=== PATIENT | female | born 1960 | race Caucasian/White ===

== ENCOUNTER → 2020-08-18 10:17 | Outpatient (CLI) | payer BC, SELFPAY ==
[2020-08-18 11:21] LABS: COVID19 -Nasal RAPID Negative (Negative)
== END ==
PROVIDERS: Visit Provider Nurse Practitioner Family
DX: Z01.812 Encounter for preprocedural laboratory examination (principal); Z20.822 Contact with and (suspected) exposure to COVID-19
CPT/HCPCS: 87635

== ENCOUNTER 2020-08-20 13:25 | Day surgery (SDC) | payer BC, SELFPAY ==
--- NOTE | 2020-08-20 12:34 | PM.HP.1 ---
History of Present Illness History of Present Illness Date Patient Seen: 08/20/20 Chief complaint: SCREENING COLONOSCOPY Narrative: 59 Years Old Female seen today for consideration of a screening colonoscopy. Last colonoscopy 2009, 2 polyps in the cecum and rectum, hyperplastic. She was advised to have a 3-year follow-up secondary to a family history positive for colon cancer in a parent who rapidly of the disease at age 70. There have been no lower GI symptoms suggesting disease such as change in bowel habits, bleeding, abdominal pain or anemia. Overall health issues have been stable, including no major cardiac events for at least 6 weeks. Past Medical History: INSOMNIA DEPRESSION W/ ANXIETY STRESS REACTION, SITUATIONAL LEFT BUNDLE BRANCH BLOCK CARDIOMYOPATHY CONGESTIVE HEART FAILURE Past Surgical History: Hysterectomy (2004) Hand surgery Colonoscopy, 2009, hyperplastic polyp x 2 Family History: Father: Prostate Cancer, colon cancer Social History: Marital Status: - Jose (1950) Occupation: Household Members: Education: College degree 1 glass of wine few times per week. Patient History Surgical History (Updated 10/16/17 @ 05:53 by Conversion Provider) History of cardiac radiofrequency ablation (RFA) Meds Home Medications and Allergies Home Medications Medication Instructions Recorded Confirmed Type RAMIPRIL (ALTACE) 5 mg PO DAILY #0 03/04/12 08/20/20 History metoprolol succinate [Toprol XL] 25 mg PO QDAY #0 03/04/12 08/20/20 History Allergies Allergy/AdvReac Type Severity Reaction Status Date / Time No Known Drug Allergies Allergy Verified 08/20/20 13:35 Review of Systems Review of Systems ROS: Yes All systems reviewed with the patient and are negative except as otherwise documented Exam Narrative Exam Narrative: GENERAL: Alert and oriented, appearing stated age and in no acute distress. HEENT: Head normocephalic/atraumatic. Pupils equal, round, and reactive to light and accomodation. Extraocular muscles intact. Tympanic membranes clear. Nasal mucosa moist, septum midline. Oral mucosa moist, no lesions. Neck soft and supple, no lymphadenopathy. LUNGS: Clear to ausculation bilaterally, no wheezes, rhonchi or rales. CV: Normal S1 and S2 with regular rate and rhythm, no audible murmurs, rubs or gallops. ABDOMEN: Soft, non-tender, non-distended, no organomegaly. Positive bowel sounds. EXTREMITIES: No clubbing, cyanosis, or edema. NEURO: Cranial nerves II through XII grossly intact, no focal deficits. PSYCH: Alert and oriented x 3. SKIN: No concerning lesions. Assessment & Plan Assessment & Plan narrative: 1. Family history of colon cancer 2. History of hyperplastic colon polyps 3. Screening for colon cancer Plan for colonoscopy. The nature and character of the procedure as well as anticipated results were discussed. The possibility of not completing the procedure was also discussed. Possible complications including aspiration pneumonia, bleeding, perforation and reaction to medications either for sedation or preparation and missed lesions were discussed. Questions were answered and proceeding to the colonoscopy was elected. Informed consent signed. I sincerely appreciate the referral allowing me to participate in this patient's care. Please contact me with any questions or concerns.
--- NOTE | 2020-08-20 12:36 | PM.OP.ENDO ---
Operative Date/Time/Diagnoses Date of procedure: 08/20/20 Procedure Notes SCOAP/Timeout: 2:28 p.m. Procedure in detail: ENDOSCOPIST: Allyson Ochoa MD Sedation RN: Vida Mike RN Sedation start time: 2:29 p.m. Sedation end time: 2:55 p.m. PROCEDURE: Colonoscopy INDICATIONS: 1. Family history of colon cancer 2. History of hyperplastic polyps 3. Screening for colon cancer MEDICATION: Levsin 0.125 mg sublingual, 9 mg Versed and 200 mcg of fentanyl ASA CLASS: 2 CECAL WITHDRAWAL TIME: 6 minutes COMPLICATIONS: None. EXTENT OF PROCEDURE: Cecum. QUALITY OF PREP: Good with portions of liquid stool. PROCEDURE: Prior to insertion of the colonoscope, a digital rectal examination was accomplished with circumferential palpation of the distal rectal mucosa without significant findings being noted. The high-definition colonoscope was passed into the rectum in the usual fashion and advanced over to the cecum without difficulty. The ileocecal valve, appendiceal stoma, and medial wall all could be inspected and no abnormalities were seen. ASCENDING COLON: As the colonoscope was withdrawn, care was taken to expose and inspect the haustral folds and no abnormalities were seen. HEPATIC FLEXURE: Normal, no polyps, diverticula or other abnormalities. TRANSVERSE COLON: Normal, no polyps, diverticula or other abnormalities. DESCENDING COLON: Normal, no polyps, diverticula or other abnormalities. SIGMOID COLON: Normal, no polyps, diverticula or other abnormalities. RECTUM: Normal. J maneuver was produced. There was no significant perianal disease. The J maneuver was broken. The remainder of the rectum was inspected and there was no external hemorrhoid disease. The scope was withdrawn. IMPRESSION: 1. Normal colonoscopy 2. Fast metabolizer of anesthesia PLAN: 1. Repeat colonoscopy in 5 years secondary to family history. 2. Will plan for propofol sedation at next colonoscopy secondary to difficulty making patient comfortable with Versed/fentanyl. The possibility of a missed lesion including a malignancy has been discussed with the patient previously. Potential alarm symptoms have been discussed and should be reported immediately.
[2020-08-20] MEDS: LACTATED RINGERS 1,000 ML 200 ML IV (13:43)
[2020-08-20 13:44] VITALS: BP 135/74; PULSE 64; RESP 16; TEMP 36.3; O2SAT 99; BMI 29.8
[2020-08-20] MEDS: HYOSCYAMINE 0.125 MG TABLET PO (13:46)
[2020-08-20] MEDS: fentaNYL 250 MCG/5 ML INJ IV (14:46)
[2020-08-20] MEDS: MIDAZOLAM 5 MG/5 ML VIAL IV (14:46)
[2020-08-20 15:01] VITALS: BP 123/74; PULSE 65; RESP 14; O2SAT 93
[2020-08-20 15:09] VITALS: BP 109/47; PULSE 70; RESP 12; O2SAT 92
[2020-08-20 15:11] VITALS: BP 114/51; PULSE 66; RESP 12; O2SAT 94
[2020-08-20 15:16] VITALS: BP 102/47; PULSE 59; RESP 10; TEMP 36.1; O2SAT 96
== END 2020-08-20 15:40 | disposition home or self-care (01) ==
PROVIDERS: Referring Provider Student in an Organized Health Care Education/Training Program; Visit Provider Student in an Organized Health Care Education/Training Program
PROC: 0DJD8ZZ Inspection of Lower Intestinal Tract, Via Natural or Artificial Opening Endoscopic (ICD-10-PCS; CPT 45378; principal; 2020-08-20 14:30)
DX: Z12.11 Encounter for screening for malignant neoplasm of colon (principal); Z86.010 Personal history of colon polyps; Z80.0 Family history of malignant neoplasm of digestive organs
CPT/HCPCS: 45378; J2250; J3010

== ENCOUNTER → 2021-06-03 08:08 | Outpatient (CLI) | payer BC, SELFPAY ==
--- NOTE | 2021-06-03 08:11 | DI.ECHO.S_ITS ---
[facility]---------+ [facility] +---------+ : : [address] : [address] [address] : : : : [id number] : : : : Phone: [phone]+ Echocardiogram Report + + :Name: ISA DAVIDSON Study Date: 06/03/2021 Height: 66 in : :[facility] ReadingLocation: Weight: 180 lb : : Gender: Female BSA: 1.9 m2 : :: 1960 Age: 60 yrs BP: 134/77 mmHg: :Reason For Study: Cardiomyopathy : : Performed By: Owen Plata : :Referring: LUIS DANIEL BRIONES : + + Interpretation Summary The left ventricle is normal in size.Left ventricular ejection fraction is estimated to be 40 +/- 5%. There is a hypokinesis of septum as well as inferior wall with significant conduction abnormalities of the septum. No significant change from the previous study. The right ventricle is normal in size and function. No significant valvular pathology. The IVC is of normal diameter and collapses greater than 50% with a sniff. This suggests a low right atrial pressure of 3 mm Hg. Procedure: A two-dimensional transthoracic echocardiogram with color flow and Doppler was performed. The study quality was technically adequate. The subcostal views were difficult to obtain and are suboptimal in quality. Comparison is made with the echocardiogram of 02/27/2011. The patient had a bundle branch block rhythm during the exam. The patient was in normal sinus rhythm during the exam. Left Ventricle: The left ventricle is normal in size. There is mild concentric left ventricular hypertrophy. There is no thrombus. Left ventricular ejection fraction is estimated to be 40 +/- 5%. There is a hypokinesis of septum as well as inferior wall with significant conduction abnormalities of the septum. No significant change from the previous study. I reviewed February 27, 2011 echo as well. Diastolic parameters suggest a relaxation abnormality of the left ventricle, consistent with probable normal filling pressures. Right Ventricle: The right ventricle is normal in size and function. Atria: Borderline left atrial enlargement. Right atrial size is normal. There is no Doppler evidence for an interatrial shunt. Mitral Valve: There is mild mitral annular calcification. There is trace mitral regurgitation. Aortic Valve: The aortic valve is trileaflet. The aortic valve opens well. There is trace aortic regurgitation. Tricuspid Valve: The tricuspid valve is normal. Pulmonary artery pressures cannot be estimated because of the lack of a measurable TR jet velocity but the IVC suggests a CVP of around 3 mmHg. There is trace tricuspid regurgitation. Pulmonic Valve: The pulmonic valve leaflets are thin and pliable; valve motion is normal. There is trace pulmonic regurgitation. Great Vessels: The aortic root is normal size. The ascending aorta is normal in size. The aortic arch is normal in size. The IVC is of normal diameter and collapses greater than 50% with a sniff. This suggests a low right atrial pressure of 3 mm Hg. Pericardium/ Pleura There is no pericardial effusion. There is an anterior echo-free space consistent with a fat pad. There is no pleural effusion. MMode/2D Measurements & Calculations LVIDd: 5.0 cm LVOT diam: 2.1 cm LVIDs: 3.7 cm asc Aorta Diam: 3.4 cm FS: 26.3 % Ao Arch Diam (Prox Trans): 3.1 cm IVSd: 1.2 cm LVPWd: 1.4 cm LV talley. diameter/BSA (cm/m^2): 2.6 LV sys. diameter/BSA (cm/m^2): 1.9 LA A2 area: 20.0 cm2 RA long axis: 4.8 cm LA A4 area: 19.5 cm2 RA area: 15.1 cm2 LA length (vol): 5.2 cm RA vol: 40.1 ml LA vol: 63.3 ml RA : 21.0 ml/m2 LA vol index: 33.1 ml/m2 TAPSE: 2.1 cm Doppler Measurements & Calculations Ao V2 max: 122.4 cm/sec LVOT Max Ephraim: 89.1 cm/sec Ao V2 mean: 89.8 cm/sec LV V1 max P.2 mmHg Ao max P.0 mmHg LV V1 VTI: 18.8 cm Ao mean P.5 mmHg LY(I,D): 2.6 cm2 Ao V2 VTI: 24.9 cm LY(V,D): 2.5 cm2 sev ratio: 0.76 LY indexed to BSA (cm^2/m^2): 1.4 MV E max ephraim: 46.3 cm/sec PA V2 max: 109.4 cm/sec MV A max ephraim: 72.8 cm/sec PA V2 mean: 65.0 cm/sec MV E/A: 0.64 PA mean P.0 mmHg Med Peak E' Ephraim: 4.0 cm/sec PA pr(Accel): 27.6 mmHg E/E' med: 11.6 Lat Peak E' Ephraim: 7.0 cm/sec E/E' lat: 6.6 E/e' average: 9.1 MV dec time: 0.21 sec SV(LVOT): 64.7 ml Reading Physician:11:07 AM
== END ==
PROVIDERS: Referring Provider Internal Medicine Cardiovascular Disease; Visit Provider Internal Medicine Cardiovascular Disease
DX: I42.8 Other cardiomyopathies (principal); I44.7 Left bundle-branch block, unspecified
CPT/HCPCS: 93306

== ENCOUNTER 2021-09-20 12:29 | Observation (INO) | payer BC, SELFPAY ==
[2021-09-20] VITALS (18 sets, daily range): BP systolic 117–163; BP diastolic 58–77; PULSE 56–67; RESP 15–21; TEMP 36.2–36.6; O2SAT 94–100; BMI 29.1; BMI 33.3
--- NOTE | 2021-09-20 12:45 | DI.CT.S_ITS ---
PROCEDURE: CT HEAD/BRAIN WO CON INDICATIONS: neuro changes, disoriented TECHNIQUE: Noncontrast 4.5 mm thick angled axial sections acquired from the foramen magnum to the vertex, with coronal and sagittal reformats. For radiation dose reduction, the following was used: automated exposure control, adjustment of mA and/or kV according to patient size. COMPARISON: [facility], CT, HEAD WITHOUT CONTRAST, 09/26/2016, 23:01. FINDINGS: Image quality: Mild streak artifact can be seen through the skull base. CSF spaces: Basal cisterns are patent. No extra-axial fluid collections. The ventricles are symmetric in size and shape. Brain: No intracranial bleeds or masses. There is cerebral volume loss for age, with resultant ventricular and sulcal prominence. There are periventricular and deep white matter chronic small vessel ischemic changes. There is intracranial internal carotid artery atherosclerosis. Skull and face: Calvarium and visualized facial bones appear intact, without suspicious lesions. Incidental note is made of hyperostosis frontalis. This is not considered to be pathologic in a woman of this age. Sinuses: Visualized sinuses and mastoids are clear. IMPRESSION: No significant intracranial abnormality is seen for age. Similar to prior. Dictated by: Larry Salazar M.D. on 09/20/2021 at 12:23 Approved by: Larry Salazar M.D. on 09/20/2021 at 12:24
--- NOTE | 2021-09-20 12:45 | DI.RAD.S_ITS ---
PROCEDURE: XR CHEST 1V INDICATIONS: altered mental status TECHNIQUE: One view of the chest was acquired. COMPARISON: [facility], CT, CT HEAD/BRAIN WO CON, 09/20/2021, 13:03. [facility], CR, CHEST 1 VIEW, 09/26/2016, 23:01. FINDINGS: Surgical changes and devices: None. Lungs and pleura: Mild generalized interstitial prominence can be seen. No pleural effusions or pneumothorax. Mediastinum: Mediastinal contours appear normal. Heart size is mildly enlarged. Bones and chest wall: No suspicious bony lesions. Age-appropriate bony degenerative changes are seen. Overlying soft tissues appear unremarkable. IMPRESSION: Mild cardiomegaly and mild interstitial prominence. Please correlate with patient presentation, physical examination findings, and laboratory values for congestive heart failure. Dictated by: Larry Salazar M.D. on 09/20/2021 at 12:34 Approved by: Larry Salazar M.D. on 09/20/2021 at 12:34
--- NOTE | 2021-09-20 12:50 | ED_ITS ---
HPI - Neuro Symptoms/Deficit General Chief Complaint: Neuro Symptoms/Deficit Stated Complaint: Confused Time Seen by Provider: 09/20/21 12:40 Source: patient Mode of arrival: Ambulatory Limitations: no limitations History of Present Illness HPI Narrative: This is a 60-year-old female comes emergency department with complaint of confusion states this morning patient got up very early and made muffins which is atypical. He states that she was normal about 7:00 a.m. this morning. He then states that she called him while he was in an office visit and he noted her speech seemed a little slurred, she was asking about where the boxes were to pack up to sent to the [facility] which he states is not something they have talked about and she was seemed confused he states that when he got home she noticed she seemed a little bit of left-sided facial droop, he thought that her eyes were not tracking on the left side appropriately in comparison to the right. He and his both state this seems to has all resolved but she still feels sort of slow like she is going through quick stand. He states she was little bit slower to answer questions. He did not appreciate any clear weakness one-sided upper lower extremities. Patient has not any numbness or tingling. She denies any other symptoms. 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 She states she has to be on other medications for this but her physician stopped them. She is not on aspirin or any blood thinners. She has not had similar symptoms or strokes in the past. No known drug allergies, occasional tobacco, occasional alcohol but none recently, no illicit. She is accompanied by her . On Anticoagulants: No Related Data Home Medications Medication Instructions Recorded Confirmed metoprolol succinate 25 mg 25 mg PO QDAY #0 03/04/12 09/20/21 tablet,extended release 24 hr (Toprol XL) ramipril 5 mg capsule 5 mg PO DAILY 09/20/21 09/20/21 Allergies Allergy/AdvReac Type Severity Reaction Status Date / Time No Known Drug Allergies Allergy Verified 09/20/21 12:32 Review of Systems Review of Systems ROS Unobtainable: All systems reviewed & are unremarkable except as noted in HPI and below Hematologic/Lymphatic On Anticoagulants: No Patient History Surgical History History of cardiac radiofrequency ablation (RFA) Social History household members: spouse Smoking Status: Never smoker Smoking Status: Never smoker alcohol intake frequency: holidays/special occasions only Substance Use Type: does not use Exam Narrative Exam Narrative: GEN: well nourished, well appearing female, alert and oriented x 3, patient appears to be in mild distress. HEENT: Atraumatic, pupils are equal round reactive to light, extraocular movements are intact, nares are clear, TMs are clear with no fluid, there is no conjunctival pallor. Throat is clear without any exudates, erythema, tonsillar enlargement or uvular deviation, no facial droop. HEART: Regular rate and rhythm without murmur, clicks, rubs. LUNGS:Lungs clear to auscultation, no wheezes, rales, crackles, chest moves symmetrically ABD:bowel sounds normal, soft, non-tender, no guarding, rebound, rigidity, no masses noted, no hepatosplenomegaly :No CVA tenderness MSCL: Non-tender, no muscle atrophy, muscles strength 5/5 upper and lower extr emities, full range of motion, normal gait NEURO:CN 2-12 intact, sensation normal, reflexes 2/4 upper and lower extremities. finger nose finger test normal, heel bustillo test normal, romberg normal SKIN: Initial Vital Signs Initial Vital Signs: Vital Signs Temperature 97.2 F L 09/20/21 12:32 Pulse Rate 67 09/20/21 12:32 Respiratory Rate 15 09/20/21 12:32 Blood Pressure 163/74 H 09/20/21 12:32 Pulse Oximetry 99 09/20/21 12:32 Scores NIH Stroke Scale Level of Conciousness: Alert, keenly responsive Ask month/age: Answers one question correctly, intubated follow commands (states 61 consistently) Open/close eyes, close hand: Performs both tasks correctly Best gaze horizontal: Normal Visual wong: No visual loss Facial palsy: Normal symetrical movement Left arm drift: No drift for full 10 sec Right arm drift: No drift for full 10 sec Left leg drift: No drift for full 5 sec Right leg drift: No drift for full 5 sec Limb ataxia: Absent Sensory on face/arms/legs: Normal, no sensory loss Best language: No aphasia, normal Dysarthria: Normal Extinction or inattention: No abnormality Total NIH Stroke scale score: 1 Course Orders Ordered: ED Orders 09/20/21 12:45 CT head/brain wo con Stat XR chest 1V Stat EKG-12 Lead Stat 09/20/21 12:55 Complete Blood Count AUTO DIFF Stat Comprehensive Metabolic Panel Stat Ethanol (ETOH) Stat Partial Thromboplastin Time Stat Prothrombin Time INR Stat Troponin & CK Cardiac Panel Stat 09/20/21 13:33 CT angio head and neck Stat 09/20/21 13:57 Urine Drug Screen, Rapid Stat 09/20/21 14:14 COVID19 -Nasal swab/Pre-Proc Stat 09/20/21 15:53 MR head/brain wo con Stat Acetaminophen (Acetaminophen 325 Mg Tablet) 650 mg PO Q6HR PRN PRN Reason: Fever Aspirin (Aspirin Ec 325 Mg Tablet) 325 mg PO DAILY ANCA Calcium Carbonate (Calcium Carbonate 500 Mg Tab) 1,000 mg PO Q4HR PRN PRN Reason: Dyspepsia Lisinopril (Lisinopril 20 Mg Tablet) 20 mg PO DAILY ANCA Magnesium Hydroxide (Magnesium Hydroxide 30 Ml Udc) 30 ml PO DAILY PRN PRN Reason: Constipation Metoprolol Succinate (Metoprolol Er 25 Mg Tablet) 25 mg PO DAILY ANCA Naloxone HCl (Naloxone 0.4 Mg/Ml Vial) 0.2 mg IV Q2MIN PRN PRN Reason: Opiate Reversal Ondansetron HCl (Ondansetron 4 Mg/2 Ml Inj) 4 mg IV Q8HR PRN PRN Reason: Nausea And Vomiting Zolpidem Tartrate (Zolpidem 5 Mg Tablet) 10 mg PO BEDTIME PRN PRN Reason: Sleep Discontinued Medications Aspirin (Aspirin 81 Mg Chew Tab) 324 mg PO NOW ONE Stop: 09/20/21 13:42 Last Admin: 09/20/21 14:08 Dose: 324 mg Documented by: FERNIE Reevaluation(s) Reevaluation #1: Patient seems much clear at this time. Reviewed her findings including head CT CTA, labs aspirin was given. Would like to keep patient for stroke workup. Patient's NIH at this time is 0 Time: 15:28 Consultations Consultation #1: Dr. Ochoa, accepts for observation for TIA. Patient symptoms have resolved but concerning for TIA. Will order MRI to faciliate inpatient workup. Vital Signs Vital signs: Vital Signs - 8 hr 09/20/21 12:32 09/20/21 13:25 09/20/21 13:26 Temperature 97.2 F L Pulse Rate 67 60 63 Respiratory Rate 15 18 18 Blood Pressure 163/74 H 132/69 Pulse Oximetry 99 94 96 09/20/21 13:30 09/20/21 14:04 09/20/21 14:06 Temperature Pulse Rate 61 65 63 Respiratory Rate 18 20 Blood Pressure 131/70 133/69 Pulse Oximetry 95 98 98 09/20/21 14:20 09/20/21 14:30 09/20/21 14:40 Temperature Pulse Rate 63 62 62 Respiratory Rate 20 20 16 Blood Pressure 129/67 143/67 H Pulse Oximetry 97 95 100 09/20/21 15:00 09/20/21 15:01 09/20/21 15:20 Temperature Pulse Rate 59 L 62 60 Respiratory Rate 17 18 20 Blood Pressure 129/75 133/65 Pulse Oximetry 98 98 97 09/20/21 15:30 09/20/21 15:40 Temperature Pulse Rate 61 59 L Respiratory Rate 19 19 Blood Pressure 139/77 Pulse Oximetry 99 99 MDM - Neuro Symptoms/Deficit Lab Data Result diagrams: 09/20/21 12:55 09/20/21 12:55 Labs: Lab Results 09/20/21 09/20/21 09/20/21 Range/Units 12:55 12:55 12:55 WBC 8.4 (4.5-11.0) X10^3/uL RBC 4.73 (4.0-5.2) X10^6/uL Hgb 14.6 (12.0-16.0) g/dL Hct 42.2 (36-46) % MCV 89.2 (80-100) fL MCH 30.9 (26-34) PG MCHC 34.6 (30-36) % RDW 12.6 (11.6-14.8) % Plt Count 234 (150-400) X10^3/uL Neut % (Auto) 67.8 (50-75) % Lymph % (Auto) 23.2 L (25-40) % Bowie % (Auto) 7.2 (3-14) % Eos % (Auto) 1.1 L (2-4) % Baso % (Auto) 0.7 (0-2) % Neut # (Auto) 5700 (0023-9658) /uL Lymph # (Auto) 2000 (1538-5645) /uL Bowie # (Auto) 600 (0-900) /uL Eos # (Auto) 100 (0-450) /uL Baso # (Auto) 100 (0-100) /uL PT (10.1-12.7) SECONDS INR (0.9-1.3) APTT (26.4-36.2) SECONDS Sodium 140 (137-145) mmol/L Potassium 4.3 (3.4-5.1) mmol/L Chloride 105 (98-107) mmol/L Carbon Dioxide 27 (22-32) mmol/L BUN 17 (7-17) mg/dL Creatinine 0.72 (0.52-1.04) mg/dL Estimated GFR > 60.0 (>60) mL/min BUN/Creatinine Ratio 23.6 H (6-22) Glucose 111 H (80-110) mg/dL Calcium 9.6 (8.4-10.2) mg/dL Total Bilirubin 0.7 (0.2-1.3) mg/dL AST 34 (14-36) IU/L ALT 37 H (<35) IU/L Alkaline Phosphatase 108 (38-126) U/L Ammonia Cancelled Total Creatine Kinase (30-135) U/L CK-MB (CK-2) CK-MB (CK-2) Rel Index Troponin I (0.01-0.034) ng/mL Total Protein 7.8 (6.3-8.2) g/dL Albumin 4.4 (3.5-5.0) g/dL Globulin 3.4 (1.7-4.1) g/dL Albumin/Globulin Ratio 1.3 (1.0-2.8) U Opiates 300ng/mL cut (Negative) Ur Oxycodone Screen (Negative) Urine Methadone Screen (Negative) Ur Barbiturates Screen (Negative) U Tricyclic Antidepress (Negative) Ur Phencyclidine Scrn (Negative) Ur Amphetamines Screen (Negative) U Methamphetamines Scrn (Negative) Ur MDMA Scrn (Ecstasy) (Negative) U Benzodiazepines Scrn (Negative) Urine Cocaine Screen (Negative) U Marijuana (THC) Screen (Negative) Ethyl Alcohol ( - 10) mg/dL SARS-CoV-2 (PCR) (Negative) 09/20/21 09/20/21 09/20/21 Range/Units 12:55 12:55 13:57 WBC (4.5-11.0) X10^3/uL RBC (4.0-5.2) X10^6/uL Hgb (12.0-16.0) g/dL Hct (36-46) % MCV (80-100) fL MCH (26-34) PG MCHC (30-36) % RDW (11.6-14.8) % Plt Count (150-400) X10^3/uL Neut % (Auto) (50-75) % Lymph % (Auto) (25-40) % Bowie % (Auto) (3-14) % Eos % (Auto) (2-4) % Baso % (Auto) (0-2) % Neut # (Auto) (0123-9930) /uL Lymph # (Auto) (8982-7566) /uL Bowie # (Auto) (0-900) /uL Eos # (Auto) (0-450) /uL Baso # (Auto) (0-100) /uL PT 10.0 L (10.1-12.7) SECONDS INR 0.9 (0.9-1.3) APTT 32 (26.4-36.2) SECONDS Sodium (137-145) mmol/L Potassium (3.4-5.1) mmol/L Chloride (98-107) mmol/L Carbon Dioxide (22-32) mmol/L BUN (7-17) mg/dL Creatinine (0.52-1.04) mg/dL Estimated GFR (>60) mL/min BUN/Creatinine Ratio (6-22) Glucose (80-110) mg/dL Calcium (8.4-10.2) mg/dL Total Bilirubin (0.2-1.3) mg/dL AST (14-36) IU/L ALT (<35) IU/L Alkaline Phosphatase (38-126) U/L Ammonia Total Creatine Kinase 57 (30-135) U/L CK-MB (CK-2) TNP CK-MB (CK-2) Rel Index TNP Troponin I < 0.012 (0.01-0.034) ng/mL Total Protein (6.3-8.2) g/dL Albumin (3.5-5.0) g/dL Globulin (1.7-4.1) g/dL Albumin/Globulin Ratio (1.0-2.8) U Opiates 300ng/mL cut Negative (Negative) Ur Oxycodone Screen Negative (Negative) Urine Methadone Screen Negative (Negative) Ur Barbiturates Screen Negative (Negative) U Tricyclic Antidepress Negative (Negative) Ur Phencyclidine Scrn Negative (Negative) Ur Amphetamines Screen Negative (Negative) U Methamphetamines Scrn Negative (Negative) Ur MDMA Scrn (Ecstasy) Negative (Negative) U Benzodiazepines Scrn Negative (Negative) Urine Cocaine Screen Negative (Negative) U Marijuana (THC) Screen Negative (Negative) Ethyl Alcohol < 10 ( - 10) mg/dL SARS-CoV-2 (PCR) (Negative) 09/20/21 Range/Units 14:14 WBC (4.5-11.0) X10^3/uL RBC (4.0-5.2) X10^6/uL Hgb (12.0-16.0) g/dL Hct (36-46) % MCV (80-100) fL MCH (26-34) PG MCHC (30-36) % RDW (11.6-14.8) % Plt Count (150-400) X10^3/uL Neut % (Auto) (50-75) % Lymph % (Auto) (25-40) % Bowie % (Auto) (3-14) % Eos % (Auto) (2-4) % Baso % (Auto) (0-2) % Neut # (Auto) (1702-2136) /uL Lymph # (Auto) (7506-0514) /uL Bowie # (Auto) (0-900) /uL Eos # (Auto) (0-450) /uL Baso # (Auto) (0-100) /uL PT (10.1-12.7) SECONDS INR (0.9-1.3) APTT (26.4-36.2) SECONDS Sodium (137-145) mmol/L Potassium (3.4-5.1) mmol/L Chloride (98-107) mmol/L Carbon Dioxide (22-32) mmol/L BUN (7-17) mg/dL Creatinine (0.52-1.04) mg/dL Estimated GFR (>60) mL/min BUN/Creatinine Ratio (6-22) Glucose (80-110) mg/dL Calcium (8.4-10.2) mg/dL Total Bilirubin (0.2-1.3) mg/dL AST (14-36) IU/L ALT (<35) IU/L Alkaline Phosphatase (38-126) U/L Ammonia Total Creatine Kinase (30-135) U/L CK-MB (CK-2) CK-MB (CK-2) Rel Index Troponin I (0.01-0.034) ng/mL Total Protein (6.3-8.2) g/dL Albumin (3.5-5.0) g/dL Globulin (1.7-4.1) g/dL Albumin/Globulin Ratio (1.0-2.8) U Opiates 300ng/mL cut (Negative) Ur Oxycodone Screen (Negative) Urine Methadone Screen (Negative) Ur Barbiturates Screen (Negative) U Tricyclic Antidepress (Negative) Ur Phencyclidine Scrn (Negative) Ur Amphetamines Screen (Negative) U Methamphetamines Scrn (Negative) Ur MDMA Scrn (Ecstasy) (Negative) U Benzodiazepines Scrn (Negative) Urine Cocaine Screen (Negative) U Marijuana (THC) Screen (Negative) Ethyl Alcohol ( - 10) mg/dL SARS-CoV-2 (PCR) Negative (Negative) Point of Care Testing Glucose POC 115 Urine Dip Bedside Urine Glucose Negative Bedside Urine Bilirubin - Negative Bedside Urine Ketone - Negative Urine Specific [place] 1.015 Bedside Urine Occult Blood - Negative Bedside Urine pH 8.0 Bedside Urine Protein - Negative Bedside Urine Urobilinogen - Negative Bedside Urine Nitrite - Negative Bedside Urine Leukocytes - Negative Esterase Imaging Data CT scan - head: Radiologist's Impression: Fatoumata Gongora??60??F??1960 ? Allergy/Adv: No Known Drug Allergies Close Head CT (Signed) Larry Salazar - 09/20/21 Chest X-Ray (Signed) Larry Salazar - 09/20/21 Echocardiogram Ultrasound (Signed) Anastacio Sandhu - 06/03/21 Telemetry Strips 08/20/20 Radiology - Historical 09/26/16 Radiology - Historical 09/26/[address] [address] [address] Scan Report Signed Patient: Fatoumata Gongora MR#: [id number] : 1960 Acct:[id number] Age/Sex: 60 / F Date of Service: 09/20/21 Loc: ED Accession Number: [id number] ?? Procedure: CT head/brain wo con Ordering Provider: Sherry Garcia D.O. PROCEDURE:? CT HEAD/BRAIN WO CON ? INDICATIONS:? neuro changes, disoriented ? TECHNIQUE:? Noncontrast 4.5 mm thick angled axial sections acquired from the foramen magnum to the vertex, with coronal and sagittal reformats.? For radiation dose reduction, the following was used:? automated exposure control, adjustment of mA and/or kV according to patient size.? ? COMPARISON:? [facility], CT, HEAD WITHOUT CONTRAST, 09/26/2016, 23:01. ? FINDINGS:? Image quality:? Mild streak artifact can be seen through the skull base. ? CSF spaces:? Basal cisterns are patent.? No extra-axial fluid collections.? The ventricles are symmetric in size and shape.? ? Brain:? No intracranial bleeds or masses.? There is cerebral volume loss for age, with resultant ventricular and sulcal prominence.? There are periventricular and deep white matter chronic small vessel ischemic changes.? There is intracranial internal carotid artery atherosclerosis.? ? Skull and face:? Calvarium and visualized facial bones appear intact, without suspicious lesions.? Incidental note is made of hyperostosis frontalis. This is not considered to be pathologic in a woman of this age. ? Sinuses:? Visualized sinuses and mastoids are clear.? IMPRESSION:? No significant intracranial abnormality is seen for age.? Similar to prior. ? ? Dictated by: Larry Salazar M.D. on 09/20/2021 at 12:23 ? ? Approved by: Larry Salazar M.D. on 09/20/2021 at 12:24? Chest x-ray: Radiologist's Impression: Launch?Image [address] [address] XRay Report Signed Patient: Fatoumata Gongora MR#: [id number] : 1960 Acct:[id number] Age/Sex: 60 / F Date of Service: 09/20/21 Loc: ED Accession Number: [id number] ?? Procedure: XR chest 1V Ordering Provider: Sherry Garcia D.O. PROCEDURE:? XR CHEST 1V ? INDICATIONS:? altered mental status ? TECHNIQUE:? One view of the chest was acquired.? ? COMPARISON:? [facility], CT, CT HEAD/BRAIN WO CON, 09/20/2021, 13:03.? [facility], CR, CHEST 1 VIEW, 09/26/2016, 23:01. ? FINDINGS:? ? Surgical changes and devices:? None.? ? Lungs and pleura:? Mild generalized interstitial prominence can be seen.? No pleural effusions or pneumothorax.? ? Mediastinum:? Mediastinal contours appear normal.? Heart size is mildly enlarged.? ? Bones and chest wall:? No suspicious bony lesions.? Age-appropriate bony degenerative changes are seen.? ? Overlying soft tissues appear unremarkable.? IMPRESSION:? Mild cardiomegaly and mild interstitial prominence. Please correlate with patient presentation, physical examination findings, and laboratory values for congestive heart failure. ? ? ? Dictated by: Larry Salazar M.D. on 09/20/2021 at 12:34 ? ? Approved by: Larry Salazar M.D. on 09/20/2021 at 12:34?? CTA - brain/neck: Radiologist's Impression: Fatoumata Gongora??60??F??1960 ? Allergy/Adv: No Known Drug Allergies Close Brain MRI (Signed) Kaleb Hoover - 09/20/21 Head/Neck CTA (Signed) Kody Pittman - 09/20/[address] (Signed) Larry Salazar - 09/20/21 Chest X-Ray (Signed) Larry Salazar - 09/20/21 Echocardiogram Ultrasound (Signed) Anastacio Sandhu - 06/03/21 Telemetry Strips 08/20/20 Radiology - Historical 09/26/16 Radiology - Historical 09/26/16 Launch?Image [address] [address] [address] Scan Report Signed Patient: Fatoumata Gongora MR#: [id number] : 1960 Acct:[id number] Age/Sex: 60 / F Date of Service: 09/20/21 Loc: ED Accession Number: [id number] ?? Procedure: CT angio head and neck Ordering Provider: Sherry Garcia D.O. PROCEDURE:? CT ANGIO HEAD AND NECK ? INDICATIONS:? facial droop. eye palsy, confusion, resolved. ? TECHNIQUE: ? After the administration of intravenous contrast, 1 mm thick sections acquired from the aortic arch through the [place] of [place].? Post-contrast 4.5 mm thick sections then re-acquired from the foramen magnum to the vertex.? 3-dimensional lwzivfg-oedofrcrp-nndbbpeaxi (MIP) and/or volume rendering reformats were acquired of the central intracranial vasculature and neck separately. ? COMPARISON:? None. ? FINDINGS:? Image quality:? Excellent.? ? BRAIN:? CSF spaces:? Ventricles are normal in size and shape.? Basal cisterns are patent.? No extra-axial fluid collections.? ? Brain:? No midline shift.? No intracranial bleeds or masses.? Diaz-white matter interface appears intact.? ? Skull and face:? Calvarium and facial bones appear intact, without suspicious lesions.? Orbits appear normal.? ? Sinuses:? Sinuses and mastoids are clear.? ? HEAD CT ANGIOGRAPHY:? Anterior circulation:? Intracranial internal carotid arteries are normal in size and flow.? The flow within the paired anterior cerebral arteries is normal and symmetric.? The flow within the middle cerebral arteries is normal and symmetric.? The anterior communicating artery is seen.? No aneurysms are seen.? ? Posterior circulation:? Visualized portions of the vertebral arteries demonstrate normal caliber, and join to form a normal appearing basilar artery.? Flow within the posterior cerebral arteries is normal and symmetric.? No aneurysms are seen.? ? NECK CT ANGIOGRAPHY:? Carotid system:? The great vessels demonstrate a conventional anatomy as they arise from the aortic arch.? The origins of the common carotid arteries appear patent.? The common carotid arteries demonstrate normal caliber and courses.? The bifurcation regions are both widely patent.? The internal carotid arteries demonstrate normal calibers and courses.? ? Posterior circulation:? The origins of the vertebral arteries both appear widely patent.? The more superior extracranial portions of both vertebral arteries also demonstrate normal courses and calibers.? They join to form a normal appearing basilar artery.? ? Soft tissues:? Visualized neck soft tissues demonstrate no suspicious abnormalities.? ? Bones:? No suspicious bony lesions.? Visualized cervical spine appears normally aligned.? IMPRESSION:? No hemodynamically significant stenosis of the major intracranial or extracranial arterial circulation. ? Any quantitative measurements of stenosis were performed using NASCET criteria.? ? ? Dictated by: Kody Pittman M.D. on 09/20/2021 at 14:17 ? ? Approved by: Kody Pittman M.D. on 09/20/2021 at 14:19? ECG Data Attestation: I personally reviewed and interpreted this ECG as follows: Prior ECG tracings: available for review Interpretation: Sinus rhythm, left bundle-branch block. Rate of 61 OH 178 QRS at 178 QTC 499. Patient has prior from 09/26/2016 appearing similar. MDM Narrative Medical decision making narrative: This is a 60-year-old female comes emergency department with altered mental status describes her as being confused slightly slurred, he appreciate some mild facial droop and some thick left eye extraocular lower palsy when he returned home. Her last known normal put her outside window for tPA and she has had resolution of her symptoms with NIH of 1 because she continues to her age is 61 although she 60. On re-evaluation patient now gets her age right she also seems a little bit clear in terms of her mentation. Head, CTA and labs do not show any acute changes that would lead to additional interventions. At this time I feel patient would be appropriate to keep for stroke workup. She does have a history of cardiomyopathy with hypokinesis of septum with significant conduction abnormalities in the septum but no changes from prior in 2010 with an EF of 35-45 %. Patient was given aspirin. Spoke with her primary care service, Dr. Ochoa who kindly accepts for admission. Discharge Plan Departure Patient Disposition: Admitted as Observation Clinical Impression: TIA (transient ischemic attack) Admit Date/Time: 09/20/21 15:57 Admit Provider: Allyson Ochoa
[2021-09-20 13:02] LABS: Add Manual Diff / Slide Review NO; Basophils Absolute Auto 100 /uL (0-100); Basophils Percent Auto 0.7 % (0-2); Eosinophils Absolute Auto 100 /uL (0-450); Eosinophils Percent Auto 1.1 % (2-4); Hematocrit 42.2 % (36-46); Hemoglobin 14.6 g/dL (12.0-16.0); Lymphocytes Absolute Auto 2000 /uL (1100-4500); Lymphocytes Percent Auto 23.2 % (25-40); Mean Corpuscular HGB Conc 34.6 % (30-36); Mean Corpuscular Hemoglobin 30.9 PG (26-34); Mean Corpuscular Volume 89.2 fL (80-100); Monocytes Absolute Auto 600 /uL (0-900); Monocytes Percent Auto 7.2 % (3-14); Neutrophils Absolute Auto 5700 /uL (1500-7000); Neutrophils Percent Auto 67.8 % (50-75); Platelet Count 234 X10^3/uL (150-400); Red Blood Cell Count 4.73 X10^6/uL (4.0-5.2); Red Cell Distribution Width 12.6 % (11.6-14.8); White Blood Cell Count 8.4 X10^3/uL (4.5-11.0)
[2021-09-20 13:10] LABS: INR 0.9 (0.9-1.3)
[2021-09-20 13:13] LABS: PTT Partial Thromboplastin Tim 32 SECONDS (26.4-36.2)
[2021-09-20 13:14] LABS: Creatine Kinase 57 U/L (30-135); Ethanol (ETOH) < 10 mg/dL
[2021-09-20 13:26] LABS: Troponin I < 0.012 ng/mL (0.01-0.034)
[2021-09-20 13:31] LABS: Alanine Aminotransferase 37 IU/L (<35); Albumin 4.4 g/dL (3.5-5.0); Albumin Globulin Ratio 1.3 (1.0-2.8); Alkaline Phosphatase 108 U/L (38-126); Aspartate Aminotransferase 34 IU/L (14-36); BUN Creatinine Ratio 23.6 (6-22); Bilirubin Total 0.7 mg/dL (0.2-1.3); Blood Urea Nitrogen 17 mg/dL (7-17); Calcium 9.6 mg/dL (8.4-10.2); Carbon Dioxide 27 mmol/L (22-32); Chloride 105 mmol/L (98-107); Estimated Glomerular Filt Rate > 60.0 mL/min (>60); Globulin 3.4 g/dL (1.7-4.1); Glucose 111 mg/dL (80-110); HEMOLYSIS < 15 (0-50); Potassium 4.3 mmol/L (3.4-5.1); Sodium 140 mmol/L (137-145); Total Protein 7.8 g/dL (6.3-8.2)
--- NOTE | 2021-09-20 13:33 | DI.CT.S_ITS ---
PROCEDURE: CT ANGIO HEAD AND NECK INDICATIONS: facial droop. eye palsy, confusion, resolved. TECHNIQUE: After the administration of intravenous contrast, 1 mm thick sections acquired from the aortic arch through the [place] of [place]. Post-contrast 4.5 mm thick sections then re-acquired from the foramen magnum to the vertex. 3-dimensional wbjgzgi-mwktegdmz-cjyxybgwhr (MIP) and/or volume rendering reformats were acquired of the central intracranial vasculature and neck separately. COMPARISON: None. FINDINGS: Image quality: Excellent. BRAIN: CSF spaces: Ventricles are normal in size and shape. Basal cisterns are patent. No extra-axial fluid collections. Brain: No midline shift. No intracranial bleeds or masses. Diaz-white matter interface appears intact. Skull and face: Calvarium and facial bones appear intact, without suspicious lesions. Orbits appear normal. Sinuses: Sinuses and mastoids are clear. HEAD CT ANGIOGRAPHY: Anterior circulation: Intracranial internal carotid arteries are normal in size and flow. The flow within the paired anterior cerebral arteries is normal and symmetric. The flow within the middle cerebral arteries is normal and symmetric. The anterior communicating artery is seen. No aneurysms are seen. Posterior circulation: Visualized portions of the vertebral arteries demonstrate normal caliber, and join to form a normal appearing basilar artery. Flow within the posterior cerebral arteries is normal and symmetric. No aneurysms are seen. NECK CT ANGIOGRAPHY: Carotid system: The great vessels demonstrate a conventional anatomy as they arise from the aortic arch. The origins of the common carotid arteries appear patent. The common carotid arteries demonstrate normal caliber and courses. The bifurcation regions are both widely patent. The internal carotid arteries demonstrate normal calibers and courses. Posterior circulation: The origins of the vertebral arteries both appear widely patent. The more superior extracranial portions of both vertebral arteries also demonstrate normal courses and calibers. They join to form a normal appearing basilar artery. Soft tissues: Visualized neck soft tissues demonstrate no suspicious abnormalities. Bones: No suspicious bony lesions. Visualized cervical spine appears normally aligned. IMPRESSION: No hemodynamically significant stenosis of the major intracranial or extracranial arterial circulation. Any quantitative measurements of stenosis were performed using NASCET criteria. Dictated by: Kody Pittman M.D. on 09/20/2021 at 14:17 Approved by: Kody Pittman M.D. on 09/20/2021 at 14:19
[2021-09-20] MEDS: ASPIRIN 81 MG CHEW TAB 324 MG PO (14:08)
[2021-09-20 14:16] LABS: UR Morphine/Opiate cutoff 300 Negative (Negative); Ur Creatinine Normal (Normal); Ur Specific Gravity Normal (Normal); Urine Amphetamines Negative (Negative); Urine Barbiturates Negative (Negative); Urine Benzodiazepines Negative (Negative); Urine Cocaine Negative (Negative); Urine MDMA Negative (Negative); Urine Methadone Negative (Negative); Urine Methamphetamines Negative (Negative); Urine Oxycodone Negative (Negative); Urine Phencyclidine Negative (Negative); Urine Tetrahydrocannabinol Negative (Negative); Urine Tricyclic Antidepressant Negative (Negative); Urine pH Normal (Normal)
[2021-09-20 14:42] LABS: COVID19 -Nasal RAPID Negative (Negative)
--- NOTE | 2021-09-20 15:53 | DI.MRI.S_ITS ---
PROCEDURE: MR HEAD/BRAIN WO CON INDICATIONS: facial droop, speech, palsy, resolved. TECHNIQUE: Non-contrast axial T1 spin echo, axial T2 fast spin echo, sagittal and axial FLAIR, coronal T2 fast spin echo, axial gradient echo, axial diffusion and ADC through the brain. COMPARISON: None. FINDINGS: Image quality: Excellent. CSF spaces: Ventricles appear symmetric in size and shape. Basal cisterns are patent. No extra-axial fluid collections. Brain: No intracranial bleeds or mass effects. There is cerebral volume loss for age. There are mild periventricular and deep white matter chronic small vessel ischemic changes. Brainstem appears normal. Diffusion-weighted images show no acute ischemic insults. No chronic ischemic insults. Normal intravascular flow voids are present. Skull and face: Calvarial bone marrow is normal in signal. Orbits are normal. Sinuses: Sinuses and mastoids are clear. IMPRESSION: 1. Mild small vessel ischemic change. 2. No evidence acute stroke, hemorrhage, or mass. Dictated by: Kaleb Hoover M.D. on 09/20/2021 at 19:31 Approved by: Kaleb Hoover M.D. on 09/20/2021 at 19:32
--- NOTE | 2021-09-20 17:48 | P.HP_ITS ---
History of Present Illness History of Present Illness Date Patient Seen: 09/20/21 Time Patient Seen: 17:48 Chief complaint: Confused Narrative: 60-year-old female admitted from the ED with TIA. Patient only remembers being confused this morning and does not remember any circumstances of her event. History is gathered from chart notes. Last known normal was at approximately 7:00 a.m. this morning per . Apparently she got up early to make muffins which is atypical. After her went to the office, she called him to ask about boxes that she needed to pack for the [employer]. He reported that they had not talked about this before and that she seemed confused and so he went home to check on her. When he got home, he noticed that she had a left-sided facial droop, that her eyes were not tracking on the left side, and that her speech was slurred. By the time that they got to the ED, her symptoms had resolved except for slight confusion. Patient could answer all questions except for her age, eventually she got this right. NIH stroke scale 1. Patient is hypertensive and over the last 2 years, her blood pressures have all been elevated in the clinic with one pressure being 210/110. She has been on average 140/90 in the clinic. She is on metoprolol 25 mg p.o. q.day and ramipril 5 mg p.o. q.day. Last cholesterol check was in 2019, normal. This is a hard time of year for her because it rivers the 7th anniversary of her son's . Life is also stressful at work. Denies any acute illnesses. 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 Last echo on 06/03/2021 revealed an ejection fraction of 40%, +/- 5%. There was hypokinesis of the septum as well as significant conduction abnormalities of the inferior wall septum. However, no significant change noted from the previous study. Besides today, patient has been in her usual state of health and maintains a regular walking exercise habit. Denies chest pain, palpitations, or fever. No shortness of breath. She does not take blood thinners. No previous history of TIAs or CVAs. Occasional tobacco and alcohol, none recently. No drugs. Vital signs in the ED included a temperature of 97.2, pulse 67, blood pressure 163/74, respirations 15, oxygen saturation 99% on room air. labs essentially unremarkable ; ALT slightly elevated at 37, glucose 111.. CT head and CT angiogram neck negative. CXR showed mild cardiomegaly and mild interstitial prominence. Past Medical History: INSOMNIA DEPRESSION W/ ANXIETY LEFT BUNDLE BRANCH BLOCK, history of CARDIOMYOPATHY, viral CONGESTIVE HEART FAILURE Past Surgical History: Hysterectomy (2004) Hand surgery Colonoscopy x 2 Family History: Father: Prostate Cancer, colon cancer Social History: Marital Status: - Jose (1950) Education: College degree 1 glass of wine few times per week. Patient History Surgical History History of cardiac radiofrequency ablation (RFA) Family & Social History Social History: household members spouse Prior Living Arrangements House Safety & Behavioral: Feels Safe in Current Yes Environment Been Physically Hurt or No Threatened By a Person Suicidal Ideation Description None Tobacco & Substance use: Smoking Status Never smoker alcohol intake frequency holiday/special occasion Substance Use Type does not use Meds Home Medications and Allergies Home Medications Medication Instructions Recorded Confirmed Type metoprolol succinate 25 mg 25 mg PO QDAY #0 03/04/12 09/20/21 History tablet,extended release 24 hr (Toprol XL) ramipril 5 mg capsule 5 mg PO DAILY 09/20/21 09/20/21 History Allergies Allergy/AdvReac Type Severity Reaction Status Date / Time No Known Drug Allergies Allergy Verified 09/20/21 12:32 Review of Systems Review of Systems Narrative: All remaining ROS were reviewed and negative except as addressed. Exam Vital Signs (past 8 hours): - 09/20/21 12:32 09/20/21 13:25 09/20/21 13:26 Temperature 97.2 F L Pulse Rate 67 60 63 Respiratory Rate 15 18 18 Blood Pressure 163/74 H 132/69 Pulse Oximetry 99 94 96 09/20/21 13:30 09/20/21 14:04 09/20/21 14:06 Temperature Pulse Rate 61 65 63 Respiratory Rate 18 20 Blood Pressure 131/70 133/69 Pulse Oximetry 95 98 98 09/20/21 14:20 09/20/21 14:30 09/20/21 14:40 Temperature Pulse Rate 63 62 62 Respiratory Rate 20 20 16 Blood Pressure 129/67 143/67 H Pulse Oximetry 97 95 100 09/20/21 15:00 09/20/21 15:01 09/20/21 15:20 Temperature Pulse Rate 59 L 62 60 Respiratory Rate 17 18 20 Blood Pressure 129/75 133/65 Pulse Oximetry 98 98 97 09/20/21 15:30 09/20/21 15:40 09/20/21 16:00 Temperature Pulse Rate 61 59 L 58 L Respiratory Rate 19 19 18 Blood Pressure 139/77 Pulse Oximetry 99 99 100 09/20/21 16:01 09/20/21 16:21 Temperature Pulse Rate 59 L 62 Respiratory Rate 21 20 Blood Pressure 126/58 L 117/70 Pulse Oximetry 100 99 Oxygen Delivery Method Room Air Narrative Exam Narrative: GENERAL: Alert and oriented, appearing stated age and in no acute distress. HEENT: Head normocephalic/atraumatic. Extraocular movements intact. LUNGS: Clear to ausculation bilaterally, no wheezes, rhonchi or rales. CV: Normal S1 and S2 with regular rate and rhythm, no audible murmurs, rubs or gallops. ABDOMEN: Soft, non-tender, non-distended, no organomegaly. Positive bowel sounds. EXTREMITIES: No clubbing, cyanosis, or edema. NEURO: Cranial nerves II through XII grossly intact, no focal deficits. [id number], [id number], and dysdiadochokinesia testing normal. Strength 5/5. Sensation intact. DTRs 2+ and symmetric. PSYCH: Alert and oriented x 3. SKIN: No concerning lesions. Objective Labs Result Diagrams: 09/20/21 12:55 09/20/21 12:55 Labs: Laboratory Results - last 24 hr 09/20/21 09/20/21 09/20/21 12:55 12:55 12:55 WBC 8.4 RBC 4.73 Hgb 14.6 Hct 42.2 MCV 89.2 MCH 30.9 MCHC 34.6 RDW 12.6 Plt Count 234 Neut % (Auto) 67.8 Lymph % (Auto) 23.2 L [place] % (Auto) 7.2 Eos % (Auto) 1.1 L Baso % (Auto) 0.7 Neut # (Auto) 5700 Lymph # (Auto) 2000 [place] # (Auto) 600 Eos # (Auto) 100 Baso # (Auto) 100 PT INR APTT Sodium 140 Potassium 4.3 Chloride 105 Carbon Dioxide 27 BUN 17 Creatinine 0.72 Estimated GFR > 60.0 BUN/Creatinine Ratio 23.6 H Glucose 111 H Calcium 9.6 Total Bilirubin 0.7 AST 34 ALT 37 H Alkaline Phosphatase 108 Ammonia Cancelled Total Creatine Kinase CK-MB (CK-2) CK-MB (CK-2) Rel Index Troponin I Total Protein 7.8 Albumin 4.4 Globulin 3.4 Albumin/Globulin Ratio 1.3 U Opiates 300ng/mL cut Ur Oxycodone Screen Urine Methadone Screen Ur Barbiturates Screen U Tricyclic Antidepress Ur Phencyclidine Scrn Ur Amphetamines Screen U Methamphetamines Scrn Ur MDMA Scrn (Ecstasy) U Benzodiazepines Scrn Urine Cocaine Screen U Marijuana (THC) Screen Ethyl Alcohol SARS-CoV-2 (PCR) 09/20/21 09/20/21 09/20/21 12:55 12:55 13:57 WBC RBC Hgb Hct MCV MCH MCHC RDW Plt Count Neut % (Auto) Lymph % (Auto) [place] % (Auto) Eos % (Auto) Baso % (Auto) Neut # (Auto) Lymph # (Auto) [place] # (Auto) Eos # (Auto) Baso # (Auto) PT 10.0 L INR 0.9 APTT 32 Sodium Potassium Chloride Carbon Dioxide BUN Creatinine Estimated GFR BUN/Creatinine Ratio Glucose Calcium Total Bilirubin AST ALT Alkaline Phosphatase Ammonia Total Creatine Kinase 57 CK-MB (CK-2) TNP CK-MB (CK-2) Rel Index TNP Troponin I < 0.012 Total Protein Albumin Globulin Albumin/Globulin Ratio U Opiates 300ng/mL cut Negative Ur Oxycodone Screen Negative Urine Methadone Screen Negative Ur Barbiturates Screen Negative U Tricyclic Antidepress Negative Ur Phencyclidine Scrn Negative Ur Amphetamines Screen Negative U Methamphetamines Scrn Negative Ur MDMA Scrn (Ecstasy) Negative U Benzodiazepines Scrn Negative Urine Cocaine Screen Negative U Marijuana (THC) Screen Negative Ethyl Alcohol < 10 SARS-CoV-2 (PCR) 09/20/21 14:14 WBC RBC Hgb Hct MCV MCH MCHC RDW Plt Count Neut % (Auto) Lymph % (Auto) [place] % (Auto) Eos % (Auto) Baso % (Auto) Neut # (Auto) Lymph # (Auto) [place] # (Auto) Eos # (Auto) Baso # (Auto) PT INR APTT Sodium Potassium Chloride Carbon Dioxide BUN Creatinine Estimated GFR BUN/Creatinine Ratio Glucose Calcium Total Bilirubin AST ALT Alkaline Phosphatase Ammonia Total Creatine Kinase CK-MB (CK-2) CK-MB (CK-2) Rel Index Troponin I Total Protein Albumin Globulin Albumin/Globulin Ratio U Opiates 300ng/mL cut Ur Oxycodone Screen Urine Methadone Screen Ur Barbiturates Screen U Tricyclic Antidepress Ur Phencyclidine Scrn Ur Amphetamines Screen U Methamphetamines Scrn Ur MDMA Scrn (Ecstasy) U Benzodiazepines Scrn Urine Cocaine Screen U Marijuana (THC) Screen Ethyl Alcohol SARS-CoV-2 (PCR) Negative Assessment & Plan Assessment & Plan narrative: 60-year-old female with history of viral cardiomyopathy and uncontrolled hypertension, admitted with symptoms of TIA, now resolved. 1. TIA, acute, resolved Plan: Will complete stroke workup with MRI of the brain and overnight observation with telemetry to determine if patient is in an arrythmia. Echo in the morning. Will check FLP, ESR, CRP, and A1c in the morning as well, may need medication optimization. ABDC2 score 4, high risk TIA, have started aspi rin, may need DAPT depending on remaining workup. Advised smoking cessation, weight reduction, reduced alcohol consumption and Mediterranean diet. Please see #3 for blood pressure control. 2. History of viral cardiomyopathy with reduced ejection fraction Plan: BNP now, risk of congestive heart failure especially with chest x-ray showing some interstitial prominence. Will treat with Lasix if needed, Outpatient cardiology follow-up. Echo. 3. Hypertension, chronic, uncontrolled Plan: Unsure if patient has an element of white coat hypertension versus other. Certainly, her pressures in the last 2 years in the clinic have been uncontrolled and will medically optimize this prior to discharge. Have started her usual blood pressure medications as patient is currently on low side of normotensive. 4. Insomnia, chronic Plan: Home ambien. 5. Depression/anxiety Plan: Supportive counseling provided. Code: Full FEN: Cardiac diet DVT prophylaxis: SCDs COVID: Negative Disposition: Anticipate one overnight stay Quality VTE Deep Vein Thrombosis/Pulmonary Embolism Present on Admission: No
--- NOTE | 2021-09-20 18:21 | PC.NURSE ---
Addendum entered by Enrique Cortez R.N. 09/20/21 18:26: Dr. Aguilera now at bedside to see patient, states she does not have any limitation on activity or eating and drinking. Patient denies complaint at this time. Original Note: Patient admitted and settled by charge nurse, oriented to room and call light. States she feels 1000% better. Denies symptoms at this time. Placed on telemetry. A waiting to be seen by Dr. Ochoa. Plan for MRI tonight as ordered. Call light within reach.
--- NOTE | 2021-09-20 18:49 | DI.ECHO.S_ITS ---
[place] +---------+ [facility] +---------+ : : [address] : : : : [id number] : : : : Phone: [phone]---------+ Echocardiogram Report + + :Name: ISA DAVIDSON Study Date: 09/21/2021 Height: 65 in : :[facility] ReadingLocation: Weight: 200 lb : : Gender: Female BSA: 2.0 m2 : :: 1960 Age: 60 yrs BP: 144/62 mmHg: :Reason For Study: TIA : :Ordering Physician: BUFFY, : :TAVARES Performed By: Deborah Mirza : :Referring: TAVARES BAER : + + Interpretation Summary Left ventricular wall thickness is mildly increased. The ejection fraction is estimated to be 40-45%. Diastolic function is indeterminate. There is a mild dyssynchronous contraction pattern, consistent with a conduction abnormality. Septal and inferior hypokinesis, unchanged from prior study. The left atrium is moderately dilated. Injection of contrast documented no interatrial shunt. The right ventricle is normal in size and function. No significant valvular abnormalities. Pulmonary artery pressures cannot be estimated. Compared to the prior study dated 06/03/2021, no significant change. Procedure: A two-dimensional transthoracic echocardiogram with color flow and Doppler was performed. The study quality was technically adequate. Comparison is made with the echocardiogram of 06/03/2021. A saline contrast injection was performed to assess for cardiac shunting. The patient was in sinus bradycardia with heart rates between 51-64 bpm during the exam. Left Ventricle: The left ventricle is normal in size. Left ventricular wall thickness is mildly increased. The ejection fraction is estimated to be 40- 45%. There is a mild dyssynchronous contraction pattern, consistent with a conduction abnormality. Septal and inferior hypokinesis, unchanged from prior study. Diastolic function is indeterminate. Right Ventricle: The right ventricle is normal in size and function. Atria: The left atrium is moderately dilated. Right atrial size is normal. Injection of contrast documented no interatrial shunt. Mitral Valve: The mitral valve is normal in structure and function. There is trace mitral regurgitation. Aortic Valve: The aortic valve opens well. There is no aortic valve stenosis. No aortic regurgitation is present. Tricuspid Valve: The tricuspid valve is normal in structure and function. There is a trace or physiologic amount of tricuspid regurgitation. Pulmonary artery pressures cannot be estimated because of the lack of a measurable TR jet velocity but the IVC suggests a CVP of around 8 mmHg. Pulmonic Valve: The pulmonic valve is not well seen, but is grossly normal. There is no pulmonic valvular regurgitation. Great Vessels: The aortic root is normal size. The dimensions of the ascending aorta are normal. The IVC is dilated (diameter is greater than 2.1 cm) yet it collapses greater than 50% with a sniff. This suggests a right atrial pressure of 8 mm Hg. Pericardium/ Pleura There is no pericardial effusion. There is no pleural effusion. MMode/2D Measurements & Calculations LVIDd: 5.3 cm LVOT diam: 2.0 cm LVIDs: 4.2 cm Ao root diam: 3.4 cm FS: 19.5 % asc Aorta Diam: 3.6 cm EPSS: 1.8 cm Ao Arch Diam (Prox Trans): 3.1 cm IVSd: 1.1 cm LVPWd: 1.2 cm LV talley. diameter/BSA (cm/m^2): 2.7 LV sys. diameter/BSA (cm/m^2): 2.1 LA A2 area: 24.5 cm2 RA long axis: 4.8 cm LA A4 area: 22.1 cm2 RA area: 17.1 cm2 LA length (vol): 5.4 cm RA vol: 51.8 ml LA vol: 85.3 ml RA : 26.2 ml/m2 LA vol index: 43.1 ml/m2 IVC diam: 2.3 cm RVD1 (basal): 3.5 cm RVD2 (mid): 3.1 cm TAPSE: 2.1 cm Doppler Measurements & Calculations Ao V2 max: 129.4 cm/sec LVOT Max [place]: 71.2 cm/sec Ao V2 mean: 92.6 cm/sec LV V1 max P.0 mmHg Ao max P.7 mmHg LV V1 VTI: 17.7 cm Ao mean P.8 mmHg LY(I,D): 1.8 cm2 Ao V2 VTI: 29.6 cm LY(V,D): 1.7 cm2 sev ratio: 0.60 LY indexed to BSA (cm^2/m^2): 0.93 MV E max ephraim: 61.7 cm/sec PA V2 max: 106.2 cm/sec MV A max ephraim: 80.7 cm/sec PA V2 mean: 68.2 cm/sec MV E/A: 0.77 PA mean P.1 mmHg Med Peak E' [place]: 3.9 cm/sec PA pr(Accel): 41.3 mmHg E/E' med: 15.9 Lat Peak E' [place]: 5.2 cm/sec E/E' lat: 11.8 E/e' average: 13.9 MV dec time: 0.29 sec SV(LVOT): 54.7 ml Reading Physician:08:59 AM
[2021-09-20 19:44] LABS: NT-proBNP (BNP-Adult 18+) 116 pg/mL (<125)
[2021-09-20] MEDS: ZOLPIDEM 5 MG TABLET 10 MG PO (21:25)
[2021-09-21] VITALS (7 sets, daily range): BP systolic 123–165; BP diastolic 48–82; PULSE 57–97; RESP 16–18; TEMP 36.2–36.9; O2SAT 95–100
[2021-09-21] MEDS: CALCIUM CARBONATE 500 MG TAB 1000 MG PO (04:59)
[2021-09-21 05:11] LABS: Add Manual Diff / Slide Review NO; Basophils Absolute Auto 0 /uL (0-100); Basophils Percent Auto 0.7 % (0-2); Eosinophils Absolute Auto 200 /uL (0-450); Eosinophils Percent Auto 2.6 % (2-4); Hematocrit 39.2 % (36-46); Hemoglobin 13.4 g/dL (12.0-16.0); Lymphocytes Absolute Auto 2100 /uL (1100-4500); Lymphocytes Percent Auto 30.1 % (25-40); Mean Corpuscular HGB Conc 34.2 % (30-36); Mean Corpuscular Hemoglobin 30.8 PG (26-34); Monocytes Absolute Auto 700 /uL (0-900); Monocytes Percent Auto 10.4 % (3-14); Neutrophils Absolute Auto 3900 /uL (1500-7000); Neutrophils Percent Auto 56.2 % (50-75); Platelet Count 210 X10^3/uL (150-400); Red Blood Cell Count 4.35 X10^6/uL (4.0-5.2); Red Cell Distribution Width 12.6 % (11.6-14.8)
[2021-09-21 05:17] LABS: BUN Creatinine Ratio 33.8 (6-22); Blood Urea Nitrogen 22 mg/dL (7-17); Calcium 8.9 mg/dL (8.4-10.2); Carbon Dioxide 25 mmol/L (22-32); Chloride 109 mmol/L (98-107); Cholesterol 153 mg/dL (140-199); Estimated Glomerular Filt Rate > 60.0 mL/min (>60); Glucose 116 mg/dL (80-110); HDL Cholesterol 61 mg/dL (40-60); HEMOLYSIS < 15 (0-50); LDL Cholesterol Calculated 53 mg/dL (<100); Potassium 4.1 mmol/L (3.4-5.1); Sodium 141 mmol/L (137-145); Triglycerides 194 mg/dL (35-150)
[2021-09-21 05:20] LABS: C-Reactive Protein Quant < 0.5 mg/dL (<1.0)
[2021-09-21 05:25] LABS: Hemoglobin A1C% w Est Avg Glu 5.5 % (4.0-6.0)
[2021-09-21 05:43] LABS: Erythrocyte Sedimentation Rate 9 MM/HR (0-20)
[2021-09-21 05:48] LABS: Thyroid Stimulating Hormone 0.949 uIU/mL (0.47-4.68)
--- NOTE | 2021-09-21 09:31 | P.DS_ITS ---
History of Present Illness History of Present Illness Date Patient Seen: 09/21/21 Time Patient Seen: 08:40 Date of Onset of Symptoms: 09/20/21 Chief complaint: Confused Narrative: Pt presented to ED with confusion and amnesia. No such previous episodes. Does report taking her blood pressure medicine late the day before. 60-year-old female admitted from the ED yesterday with suspected TIA/CVA.? Patient only remembers being confused that morning and still does not remember any circumstances of that morning.? History is gathered from chart notes.? Last known normal was at approximately 7:00 a.m. this morning per .? Apparently she got up early to make muffins? which is atypical. ? After her went to the office, she called him to ask about boxes that she needed to pack for the [employer].? He reported that they had not talked about this before and that she seemed confused and so he went home to check on her.? When he got home, he noticed that she had a left-sided facial droop, that her eyes were not tracking on the left side, and that her speech was slurred.? By the time that they got to the ED, her symptoms had resolved except for slight confusion.? Patient could answer all questions except for her age, eventually she got this right.? NIH stroke scale 1.? Patient is hypertensive and over the last 2 years, her blood pressures have all been elevated in the clinic with one pressure being 210/110.? She has been on average 140/90 in the clinic.? She is on? metoprolol 25 mg p.o. q.day and ramipril 5 mg p.o. q.day.? Last cholesterol check was in 2019, normal.? This is a hard time of year for her because it rivers the 7th anniversary of her son's .? Life? is also stressful at work.? Denies any acute illnesses.? 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 Last echo on 06/03/2021 revealed an ejection fraction of 40%, +/- 5%.? There was hypokinesis of the septum as well as significant conduction abnormalities of the inferior wall septum.? However, no significant change noted from the previous study. ? Besides today, patient has been in her usual state of health and maintains a regular walking exercise habit.? Denies chest pain, palpitations, or fever.? No shortness of breath.? She does not take blood thinners.? No previous history of TIAs or CVAs.? Occasional tobacco and alcohol, none recently.? No drugs. Vital signs in the ED included a temperature of 97.2, pulse 67, blood pressure 163/74, respirations 15, oxygen saturation 99% on room air. ? labs essentially unremarkable ; ALT slightly elevated at 37, glucose 111..? CT head and CT angiogram neck negative.? CXR showed mild cardiomegaly and mild interstitial prominence. Discharge Providers Provider Date of admission: 09/20/21 15:57 Discharge Date: 09/21/21 Primary care physician: Sav Bermeo MD Consults: 09/20/21 18:45 Consult to Discharge Planning Routine Comment: Discharge provider: Sav Bremeo MD Summary Hospital Course Discharge Diagnosis: transient global amnesia vs TIA hx of viral cardiomyopathy chronic essential hypertension insomnia depression/anxiety Hospital Course: Ms. Gongora did well overnight with no further behavioral disturbances. She remained essentially at baseline this morning and was ambulating eatinga dn eliminating as usual with normal memory of her actions. Stroke workup Status at Discharge Cognitive/behavioral status at discharge: at baseline, oriented Functional status at discharge: independent ambulation Overall status at discharge: patient is back to baseline Exam Vital Signs (past 8 hours): - 09/21/21 04:00 09/21/21 08:00 Temperature 98.5 F 97.1 F L Pulse Rate 67 97 H Respiratory Rate 18 16 Blood Pressure 124/60 165/82 H Pulse Oximetry 95 97 Oxygen Delivery Method Room Air Oxygen Flow Rate 0 Narrative Exam Narrative: sitting in bed after fnishing breakfast Const General: cooperative, healthy appearing, comfortable, well developed and well groomed [facility] Head: normal to inspection, normocephalic and atraumatic Eyes General: appearance normal, both eyes and all related structures Visual Anderson: normal visual anderson by confrontation Resp Auscultation: clear to auscultation bilaterally Cardio Rate: regular rate Rhythm: regular rhythm Heart Sounds: S1 normal and S2 normal GI Palpation: soft and No tender Auscultation: normal bowel sounds Skin General: no rashes or lesions noted Neuro General: patient alert, patient awake, patient oriented x3, moves all extremities, CN's II-XI intact bilaterally and deep tendon reflexes 2+ nicholas aterally Extrem General: normal to inspection and full ROM Psych Appearance: grossly normal Mental Status: mental status grossly normal Speech and Movement: speech and movement normal Mood: congruent mood Affect: normal affect Objective Labs Result Diagrams: 09/21/21 04:49 09/21/21 04:49 Labs: Laboratory Results - last 24 hr 09/20/21 09/20/21 09/20/21 12:55 12:55 12:55 WBC 8.4 RBC 4.73 Hgb 14.6 Hct 42.2 MCV 89.2 MCH 30.9 MCHC 34.6 RDW 12.6 Plt Count 234 Neut % (Auto) 67.8 Lymph % (Auto) 23.2 L Gilchrist % (Auto) 7.2 Eos % (Auto) 1.1 L Baso % (Auto) 0.7 Neut # (Auto) 5700 Lymph # (Auto) 2000 Gilchrist # (Auto) 600 Eos # (Auto) 100 Baso # (Auto) 100 ESR PT INR APTT Sodium 140 Potassium 4.3 Chloride 105 Carbon Dioxide 27 BUN 17 Creatinine 0.72 Estimated GFR > 60.0 BUN/Creatinine Ratio 23.6 H Glucose 111 H Hemoglobin A1c Calcium 9.6 Total Bilirubin 0.7 AST 34 ALT 37 H Alkaline Phosphatase 108 Ammonia Cancelled Total Creatine Kinase CK-MB (CK-2) CK-MB (CK-2) Rel Index Troponin I C-Reactive Protein NT-Pro-B Natriuret Pep Total Protein 7.8 Albumin 4.4 Globulin 3.4 Albumin/Globulin Ratio 1.3 Triglycerides Cholesterol LDL Cholesterol, Calc HDL Cholesterol TSH U Opiates 300ng/mL cut Ur Oxycodone Screen Urine Methadone Screen Ur Barbiturates Screen U Tricyclic Antidepress Ur Phencyclidine Scrn Ur Amphetamines Screen U Methamphetamines Scrn Ur MDMA Scrn (Ecstasy) U Benzodiazepines Scrn Urine Cocaine Screen U Marijuana (THC) Screen Ethyl Alcohol SARS-CoV-2 (PCR) 09/20/21 09/20/21 09/20/21 12:55 12:55 12:57 WBC RBC Hgb Hct MCV MCH MCHC RDW Plt Count Neut % (Auto) Lymph % (Auto) Gilchrist % (Auto) Eos % (Auto) Baso % (Auto) Neut # (Auto) Lymph # (Auto) Gilchrist # (Auto) Eos # (Auto) Baso # (Auto) ESR PT 10.0 L INR 0.9 APTT 32 Sodium Potassium Chloride Carbon Dioxide BUN Creatinine Estimated GFR BUN/Creatinine Ratio Glucose Hemoglobin A1c Calcium Total Bilirubin AST ALT Alkaline Phosphatase Ammonia Total Creatine Kinase 57 CK-MB (CK-2) TNP CK-MB (CK-2) Rel Index TNP Troponin I < 0.012 C-Reactive Protein NT-Pro-B Natriuret Pep 116 Total Protein Albumin Globulin Albumin/Globulin Ratio Triglycerides Cholesterol LDL Cholesterol, Calc HDL Cholesterol TSH U Opiates 300ng/mL cut Ur Oxycodone Screen Urine Methadone Screen Ur Barbiturates Screen U Tricyclic Antidepress Ur Phencyclidine Scrn Ur Amphetamines Screen U Methamphetamines Scrn Ur MDMA Scrn (Ecstasy) U Benzodiazepines Scrn Urine Cocaine Screen U Marijuana (THC) Screen Ethyl Alcohol < 10 SARS-CoV-2 (PCR) 09/20/21 09/20/21 09/21/21 13:57 14:14 04:49 WBC RBC Hgb Hct MCV MCH MCHC RDW Plt Count Neut % (Auto) Lymph % (Auto) Gilchrist % (Auto) Eos % (Auto) Baso % (Auto) Neut # (Auto) Lymph # (Auto) Gilchrist # (Auto) Eos # (Auto) Baso # (Auto) ESR PT INR APTT Sodium Potassium Chloride Carbon Dioxide BUN Creatinine Estimated GFR BUN/Creatinine Ratio Glucose Hemoglobin A1c Calcium Total Bilirubin AST ALT Alkaline Phosphatase Ammonia Total Creatine Kinase CK-MB (CK-2) CK-MB (CK-2) Rel Index Troponin I C-Reactive Protein NT-Pro-B Natriuret Pep Total Protein Albumin Globulin Albumin/Globulin Ratio Triglycerides Cholesterol LDL Cholesterol, Calc HDL Cholesterol TSH 0.949 U Opiates 300ng/mL cut Negative Ur Oxycodone Screen Negative Urine Methadone Screen Negative Ur Barbiturates Screen Negative U Tricyclic Antidepress Negative Ur Phencyclidine Scrn Negative Ur Amphetamines Screen Negative U Methamphetamines Scrn Negative Ur MDMA Scrn (Ecstasy) Negative U Benzodiazepines Scrn Negative Urine Cocaine Screen Negative U Marijuana (THC) Screen Negative Ethyl Alcohol SARS-CoV-2 (PCR) Negative 09/21/21 09/21/21 09/21/21 04:49 04:49 04:49 WBC 7.0 RBC 4.35 Hgb 13.4 Hct 39.2 MCV 90.0 MCH 30.8 MCHC 34.2 RDW 12.6 Plt Count 210 Neut % (Auto) 56.2 Lymph % (Auto) 30.1 Gilchrist % (Auto) 10.4 Eos % (Auto) 2.6 Baso % (Auto) 0.7 Neut # (Auto) 3900 Lymph # (Auto) 2100 Gilchrist # (Auto) 700 Eos # (Auto) 200 Baso # (Auto) 0 ESR 9 PT INR APTT Sodium 141 Potassium 4.1 Chloride 109 H Carbon Dioxide 25 BUN 22 H Creatinine 0.65 Estimated GFR > 60.0 BUN/Creatinine Ratio 33.8 H Glucose 116 H Hemoglobin A1c Calcium 8.9 Total Bilirubin AST ALT Alkaline Phosphatase Ammonia Total Creatine Kinase CK-MB (CK-2) CK-MB (CK-2) Rel Index Troponin I C-Reactive Protein NT-Pro-B Natriuret Pep Total Protein Albumin Globulin Albumin/Globulin Ratio Triglycerides 194 H Cholesterol 153 LDL Cholesterol, Calc 53 HDL Cholesterol 61 H TSH U Opiates 300ng/mL cut Ur Oxycodone Screen Urine Methadone Screen Ur Barbiturates Screen U Tricyclic Antidepress Ur Phencyclidine Scrn Ur Amphetamines Screen U Methamphetamines Scrn Ur MDMA Scrn (Ecstasy) U Benzodiazepines Scrn Urine Cocaine Screen U Marijuana (THC) Screen Ethyl Alcohol SARS-CoV-2 (PCR) 09/21/21 09/21/21 04:49 04:49 WBC RBC Hgb Hct MCV MCH MCHC RDW Plt Count Neut % (Auto) Lymph % (Auto) Gilchrist % (Auto) Eos % (Auto) Baso % (Auto) Neut # (Auto) Lymph # (Auto) Gilchrist # (Auto) Eos # (Auto) Baso # (Auto) ESR PT INR APTT Sodium Potassium Chloride Carbon Dioxide BUN Creatinine Estimated GFR BUN/Creatinine Ratio Glucose Hemoglobin A1c 5.5 Calcium Total Bilirubin AST ALT Alkaline Phosphatase Ammonia Total Creatine Kinase CK-MB (CK-2) CK-MB (CK-2) Rel Index Troponin I C-Reactive Protein < 0.5 NT-Pro-B Natriuret Pep Total Protein Albumin Globulin Albumin/Globulin Ratio Triglycerides Cholesterol LDL Cholesterol, Calc HDL Cholesterol TSH U Opiates 300ng/mL cut Ur Oxycodone Screen Urine Methadone Screen Ur Barbiturates Screen U Tricyclic Antidepress Ur Phencyclidine Scrn Ur Amphetamines Screen U Methamphetamines Scrn Ur MDMA Scrn (Ecstasy) U Benzodiazepines Scrn Urine Cocaine Screen U Marijuana (THC) Screen Ethyl Alcohol SARS-CoV-2 (PCR) [facility] Surgical History History of cardiac radiofrequency ablation (RFA) Social History household members: spouse Smoking Status: Never smoker Discharge Assessment & Plan Assessment and Plan Assessment: #Transient global amnesia vs TIA, acute, resolved Unrevealing stroke workup, no objective evidence of stroke apparent now, she is basically back to baseline still does not remember the events of yesterday morning. Stable ambulation up to bathroom eating well fully oriented back to normal per . ? advised bp med compliance with pillganizer. NIHSS zero. to the extent TIA/CVA is excluded TGA does fit available evidence. #History of viral cardiomyopathy with reduced ejection fraction Echo stable this admission with EF 40-45%, function good, probably not contributory #Hypertension, chronic, uncontrolled stable continue home meds i do not think a late dosing would trigger this #Insomnia, chronic stable continue home ambien. #Depression/anxiety Supportive counseling provided, f/u with PCP as outpatient Code: Full diet:? Cardiac diet DVT prophylaxis:? SCDs COVID:? Negative Disposition:?home to f/u with PCP Discharge Plan Discharge Plan Patient Disposition: Home Discharge orders & Medications Prescriptions: Continued metoprolol succinate [Toprol XL] 25 MG tablet extended release 24 hr 25 mg PO QDAY Qty: 0 0RF ramipril 5 mg capsule 5 mg PO DAILY 0RF Label Comments: TAKE 1 CAPSULE BY MOUTH ONCE A DAY Follow up/Referrals: Miscellaneous,MD Gee [Non-Staff] - Sav Bermeo MD [Primary Care Provider] - Visit Report/Discharge Packet Instructions: Progress in Stroke Prevention, Strokes: Prevention (Alternative Therapy), Transient Ischemic Attack, Heart-Healthy Diet, Heart Healthy Physical Activity Discharge Data Primary Care Provider: Sav Bermeo Attending Provider: Allyson Ochoa VTE Deep Vein Thrombosis/Pulmonary Embolism Present on Admission: No
[2021-09-21] MEDS: METOPROLOL ER 25 MG TABLET PO (10:28)
[2021-09-21] MEDS: ASPIRIN EC 325 MG TABLET PO (10:29)
[2021-09-21] MEDS: lisinopriL 20 MG TABLET PO (10:29)
--- NOTE | 2021-09-21 11:20 | CM.DANOTE ---
Patient is a 60 yo female who was admitted on 09/20/21 for confusion. Pt has [employer] for insurance and her PCP is Dr. Sav Bermeo. EMR was reviewed. Per MD, pt with likely TIA which seems to have resolved but admitted for workup to r/o CVA. MRI and Echo completed and per MD pt appears medically stable to d/c home today. Per RN, no concerns at this time and pt very independent and A&Ox4. SW met briefly bedside with pt and explained role and she confirms she lives in [place] with her spouse and works at baseline and independent with ADL's. Pt denies any hx of HH or SNF and confirms she feels back to baseline. Pt admits to work stress and anniversary of her son's a few years ago. Pt states she is back to walking independently and steady and has no confusion. Pt does not anticipate any needs and is thankful to be discharging back home today likely via spouse POV. Plan: SW to follow for plan of pt d/c to home today via spouse POV and no further SW needs at this time. ABY Holliday Discharge Planning/Care Management CM Discharge Assessment Start: 09/21/21 11:19 Freq: Status: Active Protocol: Document 09/21/21 11:19 BF (Rec: 09/21/21 11:20 BF [id number]) Discharge Planning Assessment Assigned [employer] Operator ABY Whitehead DPOA/Assigned Designee Name spouse Jose Advance Directives? No Advance Directives on File No History Provided By Patient,Medical Record Has Patient been admitted in last 30 No days? Prior Living Arrangements House Household Members spouse Type of transporation used prior to Drives own vehicle admit Independent with ADL's Yes Is patient alert and oriented? Yes Caregiver for Another No Barriers to Discharge No Discharge Plan Home Transportation Arrangement Spouse likely to transport at d/c Referrals Initiated None needed Whiteboard Updated in Patient Room with Yes name and ext. # of [employer] Operator Review Status In Process Please Provide Date Initial DC 09/21/21 Assessment Was Performed Next Review Type Continued Stay Review
--- NOTE | 2021-09-21 12:49 | PC.NURSE ---
Patient teaching done with patient and spouse at bedside. questions and concerns addressed. IV and tele removed, pt claudia. well. VSS. Patient escorted by staff and left in stable condition.
== END 2021-09-21 13:15 | disposition home or self-care (01) ==
LOC: ED 15:55 → AC 15:58
PROVIDERS: Admitting Provider Student in an Organized Health Care Education/Training Program; Emergency Provider Emergency Medicine; PCP Family Medicine; Referring Provider Emergency Medicine; Visit Provider Student in an Organized Health Care Education/Training Program
DX: R41.0 Disorientation, unspecified (principal); R29.701 NIHSS score 1; F41.9 Anxiety disorder, unspecified; F32.A Depression, unspecified; G47.00 Insomnia, unspecified; I10 Essential (primary) hypertension; Z20.822 Contact with and (suspected) exposure to COVID-19
CPT/HCPCS: 36415; 70450; 70496; 70498; 70551; 71045; 80048; 80053; 80061; 80305; 80320; 81003; 82550; 82962; 83036; 83880; 84443; 84484; 85025; 85610; 85651; 85730; 86140; 87635; 93005; 93010; 93306; 94762; 99285; C9803; G0378

== ENCOUNTER → 2023-06-25 18:40 | Outpatient (ROUT) | payer BC, SELFPAY ==
[2021-09-20 16:55] VITALS: BMI 33.3
[2023-06-25 19:33] LABS: Influenza A - CEPHEID Flu A POSITIVE (NEGATIVE); Influenza B - CEPHEID Flu B NEGATIVE (NEGATIVE); Respiratory Syncytial Virus Negative (Negative)
[2023-06-25 19:35] LABS: COVID-19 CEPHEID 4-PLEX PCR Negative (Negative)
== END ==
PROVIDERS: PCP Family Medicine; Visit Provider Family Medicine
DX: R05.1 Acute cough (principal); R52 Pain, unspecified
CPT/HCPCS: 0241U